=== PATIENT | male | born 1965 | race Caucasian/White ===

== ENCOUNTER → 2018-07-21 | Outpatient (CLI) | payer BC ==
--- NOTE | 2018-07-21 08:58 | US ---
EXAMINATION TYPE: US scrotum with doppler. Grayscale and color Doppler Duplex imaging performed of t corbin scrotum. DATE OF EXAM: 07/21/2018 COMPARISON: NONE CLINICAL HISTORY: N50.8 Testicular Pain. Pt states left testicular pain x 1 1/2 years EXAM MEASUREMENTS: TESTICLES: Right Testicle: 4.1 x 2.3 x 3.5 cm Left Testicle: 4.6 x 2.1 x 3.3 cm EPIDIDYMIS HEAD: Right Epididymis: 1.6 cm Left Epididymis: 1.4 cm Doppler performed to assess for testicular vascularity; good bilateral color flow and waveforms are s een. There is no evidence of testicular torsion. Presence of hydroceles: Small amount of fluid right side, and small amount of fluid superior Presence of varicoceles: No Small right epi head cyst= 0.4 x 0.3 cm IMPRESSION: 1. Epididymal cyst.
== END | disposition home or self-care (01) ==
LOC: RADUSWWP 08:23
PROVIDERS: ATTEND Internal Medicine
DX: N50.3 Cyst of epididymis (principal)
CPT/HCPCS: 76870; 93975